=== PATIENT | female | born 1965 | race Caucasian/White ===

== ENCOUNTER 2016-11-27 16:11 | Emergency (ER) | payer MEDICARE, MEDICAID ==
[2016-11-27 16:11] VITALS: BMI 22.1
[2016-11-27 16:27] VITALS: RESP 18
--- NOTE | 2016-11-27 18:05 | ED PDOC ---
HPI: Back Time Seen by Provider: 11/27/16 17:00 Chief Complaint (Nursing): Female Genitourinary Chief Complaint (Provider): Back pain History Per: Patient History/Exam Limitations: no limitations Onset/Duration Of Symptoms: Days (x2) Current Symptoms Are (Timing): Still Present Additional Complaint(s): Britta Carr is a 51 year old female with previous medical history of thyroid disease, hypercholesterolemia, PTSD and chronic back pain, who presents to the emergency department with a complaint of bilateral flank pain associated with dysuria and dark urine ongoing for 2 days. Denied any fever, chills or vomiting. PMD: Terry Christensen MD Past Medical History Reviewed: Historical Data, Nursing Documentation, Vital Signs Vital Signs: Last Vital Signs Temp 98 F 11/27/16 16:22 Pulse 54 L 11/27/16 16:22 Resp 18 11/27/16 16:22 BP 118/70 11/27/16 16:22 Pulse Ox 99 11/27/16 16:22 - Medical History PMH: Back Problems (chronic), HTN, Hypercholesterolemia, Hypothyroidism, Post Traumatic Stress Disorder - Surgical History Other surgeries: tubal ligation; colon mass/polyp removal; sinus - Family History Family History: States: Unknown Family Hx - Social History Current smoker - smoking cessation education provided: No Alcohol: None Drugs: Denies - Home Medications Home Medications: Ambulatory Orders Medication Instructions Recorded Nitrofurantoin Macrocrystals 100 mg PO BID #14 cap 11/27/16 [Macrobid] - Allergies Allergies/Adverse Reactions: Allergies Allergy/AdvReac Type Severity Reaction Status Date / Time No Known Allergies Allergy Verified 11/23/12 09:23 Review of Systems ROS Statement: Except As Marked, All Systems Reviewed And Found Negative Constitutional: Negative for: Fever Gastrointestinal: Negative for: Vomiting Genitourinary Female: Positive for: Dysuria, Other (dark urine) Musculoskeletal: Positive for: Back Pain (bilateral flank) Physical Exam - Reviewed Nursing Documentation Reviewed: Yes Vital Signs Reviewed: Yes - Physical Exam Appears: Positive for: Well, Non-toxic, No Acute Distress Head Exam: Positive for: ATRAUMATIC, NORMAL INSPECTION, NORMOCEPHALIC Skin: Positive for: Normal Color Cardiovascular/Chest: Positive for: Regular Rate, Rhythm. Negative for: Chest Non Tender Respiratory: Positive for: Normal Breath Sounds. Negative for: Respiratory Distress Gastrointestinal/Abdominal: Positive for: Normal Exam, Bowel Sounds, Soft. Negative for: Tenderness Back: Negative for: Normal Inspection, L CVA Tenderness, R CVA Tenderness Extremity: Positive for: Normal ROM. Negative for: Tenderness, Pedal Edema Neurologic/Psych: Positive for: Alert, installation technician II-XII, Oriented - Laboratory Results Result Diagrams: 11/27/16 18:40 11/27/16 18:40 - ECG O2 Sat by Pulse Oximetry: 99 (RA) Pulse Ox Interpretation: Normal Medical Decision Making Medical Decision Making: Initial Impression: Bilateral flank pain Initial Plan: * BETA-HCG * Labs * Motrin 600mg PO * Urine C&S * Urinalysis pt with Uti discharged with macrobid and ouitpt follow up pt reevaluted, noted to be sleeping in bed in NAD Scribe Attestation: Documented by Ryanne Villanueva, acting as a scribe for Pantera Hyatt MD. Provider Scribe Attestation: All medical record entries made by the Scribe were at my direction and personally dictated by me. I have reviewed the chart and agree that the record accurately reflects my personal performance of the history, physical exam, medical decision making, and the department course for this patient. I have also personally directed, reviewed, and agree with the discharge instructions and disposition. Disposition - Clinical Impression Clinical Impression: UTI (urinary tract infection) - Patient ED Disposition Is Patient to be Admitted: No Counseled Patient/Family Regarding: Studies Performed, Diagnosis, Need For Followup - Disposition Disposition: Routine/Home Disposition Time: 19:00 Condition: IMPROVED Additional Instructions: follow up with your primary doctor in 1-2 days return to the ED with any worsening or concerning symptoms Prescriptions: Nitrofurantoin Macrocrystals [Macrobid] 100 mg PO BID #14 cap Instructions: Urinary Tract Infection in Women (ED) Forms: [employer] (Pashto) Print Language: [place]
[2016-11-27 18:57] LABS: ALB/GLOB RATIO 1.4 (1.0-2.1); ALKALINE PHOSPHATASE 87 U/L (38-126); ALT/SGPT 40 U/L (9-52); AST/SGOT 34 U/L (14-36); BASO # 0.1 K/uL (0.0-0.2); BASO % 0.9 % (0.0-2.0); BILIRUBIN,TOTAL 0.4 mg/dl (0.2-1.3); BLOOD UREA NITROGEN 19 mg/dl (7-17); CALCIUM 9.9 mg/dL (8.4-10.2); CARBON DIOXIDE 30 mmol/L (22-30); CHLORIDE 104 mmol/L (98-107); EOS # 0.3 K/uL (0.0-0.7); EOS % 5.5 % (0.0-4.0); GFR AFRICAN-AMERICAN > 60; GLUCOSE,RANDOM 90 mg/dL (65-105); HEMATOCRIT 40.4 % (34.0-47.0); LYMPH % 32.4 % (20.0-40.0); MEAN CELL VOLUME 80.8 fl (81.0-99.0); MEAN CORPUSCULAR HEMOGLOBIN 25.8 pg (27.0-31.0); MONO # 0.7 K/uL (0.0-0.8); MONO % 11.1 % (0.0-10.0); NEUT % 50.1 % (50.0-75.0); POTASSIUM 4.3 MMOL/L (3.6-5.0); SODIUM 142 mmol/l (132-148); TOTAL PROTEIN 7.3 G/DL (6.3-8.2); WHITE BLOOD COUNT 6.1 K/uL (4.8-10.8)
[2016-11-27 19:06] LABS: RBC URINE 2 /hpf (0-3); URINE BILIRUBIN NEGATIVE (NEGATIVE); URINE BLOOD NEGATIVE (NEGATIVE); URINE COLOR YELLOW (YELLOW); URINE GLUCOSE (UA) NEG (Normal); URINE KETONE NEGATIVE (NEGATIVE); URINE LEUKOCYTE ESTERASE TRACE Leu/uL (Negative); URINE PROTEIN NEGATIVE (NEGATIVE); URINE UROBILINOGEN 0.2-1.0 mg/dL (0.2-1.0); WBC URINE 6 /hpf (0-5)
[2016-11-27 22:37] VITALS: BP 114/67; PULSE 61; TEMP 98
[2016-11-27 22:46] VITALS: O2SAT 99
== END 2016-11-27 22:36 | disposition home or self-care (01) ==
LOC: H.ER 16:11
DX: N39.0 Urinary tract infection, site not specified (principal); E03.9 Hypothyroidism, unspecified; F43.10 Post-traumatic stress disorder, unspecified; I10 Essential (primary) hypertension

== ENCOUNTER 2018-04-06 08:04 | Emergency (ER) | payer MEDICARE, MEDICAID ==
[2018-04-06 08:11] VITALS: BMI 27.6
[2018-04-06] MEDS ORDERED: Sodium Chloride 0.9% 1,000 ML IV STA ×2 (09:30→14:00)
[2018-04-06 09:58] LABS: SQUAMOUS EPITHIAL < 1 /hpf (0-5); URINE BILIRUBIN NEGATIVE (NEGATIVE); URINE BLOOD NEGATIVE (NEGATIVE); URINE CALCIUM OXALATE CRYSTALS OCC /hpf (<OCC); URINE CLARITY SLIGHTY-CLOUDY (Clear); URINE COLOR YELLOW (YELLOW); URINE GLUCOSE (UA) NEG (NEGATIVE); URINE LEUKOCYTE ESTERASE NEG Leu/uL (Negative); URINE PROTEIN NEGATIVE (NEGATIVE); URINE UROBILINOGEN 0.2-1.0 mg/dL (0.2-1.0)
--- NOTE | 2018-04-06 10:05 | ED PDOC ---
HPI:Nausea, Vomiting, Diarrhea Time Seen by Provider: 04/06/18 09:13 Chief Complaint (Nursing): GI Problem Chief Complaint (Provider): GI Problem History Per: Patient History/Exam Limitations: no limitations Onset/Duration Of Symptoms: Days (x 7) Current Symptoms Are (Timing): Still Present Associated Symptoms: Nausea, Vomiting, Diarrhea Additional Complaint(s): 52 year old female with a history of hypothyroidism presents to the Ed with nausea, vomiting and diarrhea for 1 week. Patient reports that the symptoms began after she ate chicken on . She initially thought it was due to food poisoning, but the symptoms persist. Patient has 2-3 episodes of loose, watery diarrhea. Denies blood or bile in vomiting and diarrhea, any recent travel and sick contacts. PMD: Dr. Terry Christensen Past Medical History Reviewed: Historical Data, Nursing Documentation, Vital Signs Vital Signs: Last Vital Signs Temp 99.3 F 04/06/18 08:10 Pulse 85 04/06/18 08:10 Resp 16 04/06/18 08:10 BP 112/59 L 04/06/18 08:10 Pulse Ox 98 04/06/18 08:12 - Medical History PMH: Asthma, Back Problems (chronic), HTN, Hypercholesterolemia, Hypothyroidism, Post Traumatic Stress Disorder - Surgical History Surgical History: No Surg Hx - Family History Family History: States: Unknown Family Hx - Home Medications Home Medications: Ambulatory Orders Medication Instructions Recorded Nitrofurantoin Macrocrystals 100 mg PO BID #14 cap 11/27/16 [Macrobid] - Allergies Allergies/Adverse Reactions: Allergies Allergy/AdvReac Type Severity Reaction Status Date / Time No Known Allergies Allergy Verified 04/06/18 08:12 Review of Systems ROS Statement: Except As Marked, All Systems Reviewed And Found Negative Constitutional: Negative for: Fever, Other (recent travel or sick contacts) Gastrointestinal: Positive for: Nausea, Vomiting, Diarrhea. Negative for: Abdominal Pain, Melena, Hematochezia, Hematemesis Physical Exam - Reviewed Nursing Documentation Reviewed: Yes Vital Signs Reviewed: Yes - Physical Exam Appears: Positive for: No Acute Distress (tearful on exam; normal vitals) Head Exam: Positive for: ATRAUMATIC, NORMAL INSPECTION, NORMOCEPHALIC Skin: Positive for: Normal Color, Warm, Dry Eye Exam: Positive for: EOMI, Normal appearance, PERRL Neck: Positive for: Normal, Painless ROM, Supple Cardiovascular/Chest: Positive for: Regular Rate, Rhythm. Negative for: Murmur Respiratory: Positive for: Normal Breath Sounds. Negative for: Respiratory Distress Gastrointestinal/Abdominal: Positive for: Normal Exam, Soft. Negative for: Tenderness Extremity: Positive for: Normal ROM (x 4). Negative for: Deformity, Swelling Neurologic/Psych: Positive for: Alert, Oriented (x 3). Negative for: Motor/Sensory Deficits - Laboratory Results Result Diagrams: 04/06/18 09:45 04/06/18 09:31 Lab Results: Urine Color Yellow (YELLOW) 04/06/18 09:31 Urine Clarity Slighty-cloudy (Clear) 04/06/18 09:31 Urine pH 5.0 (5.0-8.0) 04/06/18 09:31 Ur Specific [place] 1.023 (1.003-1.030) 04/06/18 09:31 Urine Protein Negative mg/dL (NEGATIVE) 04/06/18 09:31 Urine Glucose (UA) Neg mg/dL (NEGATIVE) 04/06/18 09:31 Urine Ketones Negative mg/dL (NEGATIVE) 04/06/18 09:31 Urine Blood Negative (NEGATIVE) 04/06/18 09:31 Urine Nitrate Negative (NEGATIVE) 04/06/18 09:31 Urine Bilirubin Negative (NEGATIVE) 04/06/18 09:31 Urine Urobilinogen 0.2-1.0 mg/dL (0.2-1.0) 04/06/18 09:31 Ur Leukocyte Esterase Neg [place]/uL (Negative) 04/06/18 09:31 Urine RBC (Auto) < 1 /hpf (0-3) 04/06/18 09:31 Urine Microscopic WBC < 1 /hpf (0-5) 04/06/18 09:31 Ur Squamous Epith Cells < 1 /hpf (0-5) 04/06/18 09:31 Calcium Oxalate Crystal Occ /hpf (<OCC) H 04/06/18 09:31 - ECG O2 Sat by Pulse Oximetry: 98 (RA) Pulse Ox Interpretation: Normal Medical Decision Making Medical Decision Makin:28 MDM: workup for gastroenteritis Labs sent Given Zofran, IV fluids and immodium Reassess 1700 Labs WNL. Crystals seen in urine but no UTI. CT shows now abnormalities and no indication of stones. Pt to follow up with PMD in one week or sooner if needed. Return parameters discussed. Scribe Attestation: Documented by Esther Paiz acting as a scribe for Monica Julien MD Provider Scribe Attestation: All medical record entries made by the Scribe were at my direction and personally dictated by me. I have reviewed the chart and agree that the record accurately reflects my personal performance of the history, physical exam, [facility] decision making, and the department course for this patient. I have also personally directed, reviewed, and agree with the discharge instructions and disposition. Disposition - Clinical Impression Clinical Impression: Gastroenteritis - Disposition Disposition: Routine/Home Disposition Time: 17:00 Condition: IMPROVED Forms: [employer] (Romansh)
[2018-04-06 10:10] LABS: VENOUS BLOOD GAS BASE EXCESS 4.5 mmol/L (0.0-2.0); VENOUS BLOOD GAS PCO2 63 mmHg (40-60); VENOUS BLOOD GAS PO2 22 mm/Hg (30-55); VENOUS BLOOD PH 7.32 (7.32-7.43)
[2018-04-06 10:10] LABS: GFR NON-AFRICAN AMERICAN > 60
[2018-04-06 10:13] LABS: BASO # 0.1 K/uL (0.0-0.2); BASO % 0.7 % (0.0-2.0); EOS # 0.3 K/uL (0.0-0.7); EOS % 2.9 % (0.0-4.0); HEMOGLOBIN 13.5 g/dL (12.0-16.0); LYMPH # 0.4 K/uL (1.0-4.3); LYMPH % 4.3 % (20.0-40.0); MEAN CELL VOLUME 82.4 fl (81.0-99.0); MEAN CORPUSCULAR HEMOGLOBIN 26.1 pg (27.0-31.0); MEAN CORPUSCULAR HGB CONC 31.7 g/dL (33.0-37.0); MEAN PLATELET VOLUME 9.6 fl (7.2-11.7); MONO # 0.6 K/uL (0.0-0.8); MONO % 5.9 % (0.0-10.0); NEUT # 8.9 K/uL (1.8-7.0); NEUT % 86.2 % (50.0-75.0); NRBC % 0.2 % (0.0-0.0); PLATELET COUNT 249 K/uL (130-400); RBC 5.16 Mil/uL (3.80-5.20); WHITE BLOOD COUNT 10.4 K/uL (4.8-10.8)
[2018-04-06 10:17] LABS: ALB/GLOB RATIO 1.2 (1.0-2.1); ALBUMIN 4.1 g/dL (3.5-5.0); ALT/SGPT 33 U/L (9-52); AST/SGOT 28 U/L (14-36); BLOOD UREA NITROGEN 9 mg/dl (7-17); CALCIUM 9.5 mg/dL (8.4-10.2); LIPASE 58 U/L (23-300)
[2018-04-06 11:32] LABS: BANDS 1 % (0-2); EOSINOPHIL 4 % (0-7); LYMPHOCYTE 5 % (20-50); MONOCYTE 6 % (0-10); NEUTROPHIL 84 % (42-75); TOTAL CELLS COUNTED 100
[2018-04-06 11:33] LABS: ANISOCYTOSIS SLIGHT; PLATELET ESTIMATE NORMAL (NORMAL)
--- NOTE | 2018-04-06 15:47 | CT ---
Date of service: 04/06/2018 PROCEDURE: CT Abdomen and Pelvis without intravenous contrast HISTORY: Nausea and vomiting. Renal calculus disease suspected COMPARISON: None TECHNIQUE: Unenhanced. Neither IV nor oral contrast administered Radiation dose: Total exam DLP = 539.59 mGy-cm. This CT exam was performed using one or more of the following dose reduction techniques: Automated exposure control, adjustment of the mA and/or kV according to patient size, and/or use of iterative reconstruction technique. FINDINGS: LOWER THORAX: Unremarkable. LIVER: Unremarkable. No gross lesion or ductal dilatation. GALLBLADDER AND BILE DUCTS: Unremarkable. PANCREAS: Unremarkable. No gross lesion or ductal dilatation. SPLEEN: Unremarkable. ADRENALS: Unremarkable. No mass. KIDNEYS AND URETERS: Unremarkable. No hydronephrosis. No solid mass. VASCULATURE: Atherosclerotic calcification and mural plaque present. Findings are seen throughout the aorta BOWEL: Unremarkable. No obstruction. No gross mural thickening. APPENDIX: Unremarkable. Normal appendix. PERITONEUM: Unremarkable. No free fluid. No free air. LYMPH NODES: Unremarkable. No enlarged lymph nodes. BLADDER: Unremarkable. REPRODUCTIVE: Unremarkable. BONES: No acute fracture. OTHER FINDINGS: None. IMPRESSION: No significant or acute findings to account for/ related to the clinical presentation.
[2018-04-06 18:07] VITALS: BP 95/54; PULSE 82; RESP 18; O2SAT 97
[2018-04-06 18:11] VITALS: TEMP 98.8
== END 2018-04-06 18:20 | disposition home or self-care (01) ==
LOC: H.ER 08:04
DX: K52.9 Noninfective gastroenteritis and colitis, unspecified (principal); I10 Essential (primary) hypertension; J45.909 Unspecified asthma, uncomplicated; F43.10 Post-traumatic stress disorder, unspecified; E03.9 Hypothyroidism, unspecified
CPT/HCPCS: 74176; 80053; 81003; 81025; 82803; 83690; 85025; 96361; 96374; 99284; J2405; J7030